=== PATIENT | female | born 1960 | race African-American/Black ===

== ENCOUNTER 2019-09-03 12:03 | Emergency (ER) | payer MEDICAID, OTHER ==
[~2019-09-03] VITALS: Ht 160 cm; Wt 89.5 kg
[2019-09-03 12:03] VITALS: BP 146/90
[~2019-09-03 12:03] MED LIST: ALBU2.5V8 INH; AMOX1TAB61 PO; ERGO500027 PO; IPRA4AER IH; VENTOLIN HFA8 GM IH
[2019-09-03] MEDS ORDERED: ORPH100T PO (12:19)
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
== END 2019-09-03 12:28 | disposition home or self-care (01) ==
LOC: ER 12:03
DX: S29.012A Strain of muscle and tendon of back wall of thorax, initial encounter (principal); M54.2 Cervicalgia; M25.512 Pain in left shoulder; I10 Essential (primary) hypertension; F17.200 Nicotine dependence, unspecified, uncomplicated; F10.20 Alcohol dependence, uncomplicated; Y90.9 Presence of alcohol in blood, level not specified; V49.9XXA Car occupant (driver) (passenger) injured in unspecified traffic accident, initial encounter; Y92.488 Other paved roadways as the place of occurrence of the external cause; Y93.89 Activity, other specified; Y99.8 Other external cause status
CPT/HCPCS: 99283